=== PATIENT | female | born 1985 | race Caucasian/White ===

== ENCOUNTER 2018-04-24 16:11 | Emergency (ER) | payer OTHER ==
[~2018-04-24] VITALS: Ht 165.1 cm; Wt 81.6 kg
[~2018-04-24 16:11] MED LIST: CYCLOBENZAPRINE10 MG PO; IBU800 MG PO; Motrin,Rufen800 MG PO; PREDNISONE10 MG PO; ROBITUSSIN5 ML PO; VIBRAMYCIN100 MG PO
== END 2018-04-24 16:55 | disposition home or self-care (01) ==
LOC: ED 16:11
DX: R51 Headache (principal); F07.81 Postconcussional syndrome; R11.0 Nausea; R42 Dizziness and giddiness

== ENCOUNTER 2019-11-29 12:18 | Emergency (ER) | payer OTHER ==
[~2019-11-29] VITALS: Ht 165.1 cm; Wt 80.7 kg
== END 2019-11-29 13:55 | disposition home or self-care (01) ==
LOC: ED 12:18
DX: S92.342A Displaced fracture of fourth metatarsal bone, left foot, initial encounter for closed fracture (principal); S92.352A Displaced fracture of fifth metatarsal bone, left foot, initial encounter for closed fracture; W18.41XA Slipping, tripping and stumbling without falling due to stepping on object, initial encounter; Y93.89 Activity, other specified; Y92.89 Other specified places as the place of occurrence of the external cause; Y99.8 Other external cause status

== ENCOUNTER → 2019-12-02 | Day surgery (SDC) | payer OTHER ==
[2019-12-01 11:19] LABS: BASO % 0.4 % (0.0-1.0); EOS # 0.2 10*3/uL (0.0-0.4); EOS % 2.4 % (1.0-4.0); HEMATOCRIT 41.7 % (37.0-47.0); LYMPH # 1.4 10*3/uL (1.3-4.4); LYMPH % 15.6 % (27.0-41.0); MEAN CORPUSCULAR HGB CONC 32.6 g/dl (33.0-37.0); MEAN PLATELET VOLUME 10.6 fl (9.6-12.3); MONO # 0.6 10*3/uL (0.1-1.0); MONO % 6.3 % (3.0-9.0); NEUT # 6.7 10*3/uL (2.3-7.9); NEUT % 74.9 % (47.0-73.0); PLATELET COUNT AUTOMATED 349 10*3/uL (130-400); RED BLOOD COUNT 4.85 10*6/uL (4.10-5.10); RED CELL DISTRI WIDTH 13.7 % (0-14.5)
[~2019-12-02] VITALS: Ht 165.1 cm; Wt 81.6 kg
[~2019-12-02] MED LIST changes: +DOXYCYCLINE100 M3 PO; +TRAMADOL HCL50 MG PO; +XARELTO10 MG PO
[2019-12-02 08:24] VITALS: BP 127/75
[2019-12-02 11:22] VITALS: BP 111/62
[2019-12-02 11:37] VITALS: BP 125/77
[2019-12-02 11:52] VITALS: BP 143/71
[2019-12-02 12:07] VITALS: BP 141/78
== END | disposition home or self-care (01) ==
LOC: SDC 12-01 10:15
PROVIDERS: Podiatrist
DX: S92.342A Displaced fracture of fourth metatarsal bone, left foot, initial encounter for closed fracture (principal); S92.352A Displaced fracture of fifth metatarsal bone, left foot, initial encounter for closed fracture; X58.XXXA Exposure to other specified factors, initial encounter; Y93.89 Activity, other specified; Y92.89 Other specified places as the place of occurrence of the external cause; Y99.8 Other external cause status; Z83.3 Family history of diabetes mellitus; Z82.49 Family history of ischemic heart disease and other diseases of the circulatory system

== ENCOUNTER 2019-12-05 11:53 | Emergency (ER) | payer OTHER ==
[~2019-12-05] VITALS: Ht 165.1 cm; Wt 80.7 kg
== END 2019-12-05 14:38 | disposition home or self-care (01) ==
LOC: ED 11:53
DX: M79.605 Pain in left leg (principal); Z79.899 Other long term (current) drug therapy

== ENCOUNTER 2020-04-27 10:28 | Emergency (ER) | payer OTHER ==
[~2020-04-27] VITALS: Ht 165.1 cm; Wt 83.9 kg
== END 2020-04-27 11:30 | disposition home or self-care (01) ==
LOC: ED 10:28
DX: J06.9 Acute upper respiratory infection, unspecified (principal); Z20.828 Contact with and (suspected) exposure to other viral communicable diseases

== ENCOUNTER 2022-05-22 17:32 | Emergency (ER) | payer OTHER ==
[~2022-05-22] VITALS: Wt 88.5 kg
[2022-05-22] MEDS ORDERED: MEDROL DOSEPAK4 MG PO (18:29)
== END 2022-05-22 18:39 | disposition home or self-care (01) ==
LOC: ED 17:32
DX: S93.692A Other sprain of left foot, initial encounter (principal); Z98.51 Tubal ligation status; W22.8XXA Striking against or struck by other objects, initial encounter; Y93.89 Activity, other specified; Y92.89 Other specified places as the place of occurrence of the external cause; Y99.8 Other external cause status

== ENCOUNTER 2022-09-07 11:17 | Emergency (ER) | payer OTHER ==
[~2022-09-07] VITALS: Ht 165.1 cm; Wt 86.2 kg
[~2022-09-07 11:17] MED LIST changes: +MEDROL DOSEPAK4 MG PO
[2022-09-07] MEDS ORDERED: ZITHROMAX250 MG PO (14:09)
== END 2022-09-07 12:47 | disposition home or self-care (01) ==
LOC: ED 11:17
DX: B34.9 Viral infection, unspecified (principal); Z20.822 Contact with and (suspected) exposure to COVID-19; Z98.51 Tubal ligation status; Z90.89 Acquired absence of other organs

== ENCOUNTER 2024-08-16 17:48 | Emergency (ER) | payer OTHER ==
[~2024-08-16] VITALS: Ht 165.1 cm; Wt 88.0 kg
[~2024-08-16 17:48] MED LIST changes: +ZITHROMAX250 MG PO
[2024-08-16 18:19] LABS: BASO # 0.1 10*3/uL (0.0-0.1); BASO % 0.7 % (0.0-1.0); EOS # 0.3 10*3/uL (0.0-0.4); EOS % 3.3 % (1.0-4.0); HEMATOCRIT 40.4 % (37.0-47.0); MEAN CELL VOLUME 85.1 fl (81.0-99.0); MEAN CORPUSCULAR HGB 27.6 pg (27.0-31.0); MEAN CORPUSCULAR HGB CONC 32.4 g/dl (33.0-37.0); MEAN PLATELET VOLUME 9.8 fl (9.6-12.3); MONO # 0.7 10*3/uL (0.1-1.0); MONO % 7.2 % (3.0-9.0); NEUT # 5.4 10*3/uL (2.3-7.9); NEUT % 58.4 % (47.0-73.0); PLATELET COUNT AUTOMATED 384 10*3/uL (130-400); RED BLOOD COUNT 4.75 10*6/uL (4.10-5.10); RED CELL DISTRI WIDTH 13.2 % (0-14.5); WHITE BLOOD COUNT 9.2 10*3/uL (4.8-10.8)
[2024-08-16] MEDS ORDERED: MAGNESIUM CITRATE 296 ML BOT PO ONE (18:25)
[2024-08-16 18:34] LABS: BILIRUBIN Negative (Negative); BLOOD Trace-Lysed (Negative); CLARITY Clear (Clear); COLOR Yellow (Yellow); GLUCOSE Negative (Negative); KETONE Negative (Negative); LEUKO ESTERASE Trace (Negative); NITRITE Negative (Negative); PH 6.5 (4.5-8.0); SPECIFIC GRAVITY <= 1.005 (1.001-1.030); UROBILINOGEN 0.2 E.U./dl (0.0-1.0)
[2024-08-16 18:34] LABS: ALKALINE PHOSPHATASE 118 U/L (46-116); BUN 9 mg/dl (9-23); CHLORIDE 107 mmol/L (98-107); POTASSIUM 3.7 mmol/L (3.4-5.1); SGPT/ALT 47 U/L (5-49); TOTAL PROTEIN 6.9 gm/dL (6.0-8.0)
[2024-08-16 18:56] LABS: BACTERIA 1+
== END 2024-08-16 18:33 | disposition home or self-care (01) ==
LOC: ED 17:48
PROVIDERS: Nurse Practitioner
DX: K59.00 Constipation, unspecified (principal); R74.01 Elevation of levels of liver transaminase levels